=== PATIENT | female | born 1930 | race Caucasian/White ===

== ENCOUNTER 2018-03-10 07:11 | Emergency (ER) | payer OTHER ==
[~2018-03-10] VITALS: Ht 157.5 cm; Wt 48.5 kg
[~2018-03-10 07:11] MED LIST: LOSARTAN POTASS25 MG PO
[2018-03-10] MEDS ORDERED: KETOROLAC TROMETHAMINE 30 MG/ML VIAL IM STA (07:20)
[2018-03-10] MEDS ORDERED: HYDROCODONE/APAP 5MG-325MG TAB PO ONE (07:30)
[2018-03-10] MEDS ORDERED: CLONIDINE HCL 0.1 MG TAB PO ONE (07:30)
[2018-03-10] MEDS ORDERED: DEXAMETHASONE SOD PHOS 10 MG/1 ML VIAL IM ONE (07:30)
--- NOTE | 2018-03-10 09:03 | Diagnostic Imaging Report ---
PROCEDURE:X-RAY COMPLETE MANDIBLE, FOUR OR MORE VIEWS COMPARISON:None. INDICATIONS:RIGHT JAW PAIN FINDINGS: Exam somewhat limited by bony overlap. No evidence of displaced fracture. Alignment is unremarkable. The paranasal sinuses are clear. CONCLUSION: No evidence of displaced mandibular fracture. Dictated by: JUANIS GARCIA M.D. on 03/10/2018 at 9:12 Electronically approved by: JUANIS GARCIA M.D. on 03/10/2018 at 9:12
[2018-03-10 09:39] VITALS: BP 105/58
== END 2018-03-10 09:49 | disposition home or self-care (01) ==
LOC: ER 07:11
DX: G50.0 Trigeminal neuralgia (principal)
CPT/HCPCS: 70110; 99283; J1100; J1885

== ENCOUNTER 2018-03-11 12:01 | Emergency (ER) | payer OTHER ==
[~2018-03-11] VITALS: Ht 157.5 cm; Wt 48.5 kg
--- OUTSIDE RECORDS SUMMARY | 2018-03-11 12:02 | XMS REPORT ---
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 Allergies, Adverse Reactions, Alerts This patient has no known allergies or adverse reactions. Medications This patient has no known medications. Results Test Description Test Time Test Comments Text Results Atomic Results Result Comments MANDIBLE COMP 4+VIEW 2018-03-10 09:12:00 [place] [address] Patient Name: PIO BOSS MR #: [id number] : 1930 Age/Sex: 87/F Req #: [id number] Adm Physician: Ordered by: JOSR CERON MD Report #: [id number] Location: ER Room/Bed: Procedure: [id number] DX/MANDIBLE COMP 4+VIEW Exam Date: 03/10/18 Exam Time: 0815 REPORT STATUS: Signed PROCEDURE: X-RAY COMPLETE MANDIBLE, FOUR OR MORE VIE WS COMPARISON: None. INDICATIONS: RIGHT JAW PAIN FINDINGS: Exam somewhat limited by bony overlap. No evidence of displaced fracture. Alignment is unremarkable. The paranasal sinuses are clear. CONCLUSION: No evidence of displaced mandibular fracture. Dictated by: JUANIS GARCIA M.D. on 03/10/2018 at 9:12 Electronically approved by: JUANIS GARCIA M.D. on 03/10/2018 at 9:12 Dictated By: JUANIS GARCIA MD 1 Transcribed By: SAL on 03/10/18911 COPY TO: JOSR CERON MD
== END 2018-03-11 13:00 | disposition home or self-care (01) ==
LOC: ER 12:01
DX: R68.84 Jaw pain (principal); M26.621 Arthralgia of right temporomandibular joint; M81.0 Age-related osteoporosis without current pathological fracture
CPT/HCPCS: 99282

== ENCOUNTER 2018-04-05 17:06 | Emergency (ER) | payer OTHER ==
[~2018-04-05] VITALS: Ht 157.5 cm; Wt 46.7 kg
--- NOTE | 2018-04-05 19:36 | Diagnostic Imaging Report ---
History: Trauma, status post fall. Comparison studies: CT cervical spine from 11/01/2014. Technique: Axial images were obtained through the cervical region.. Coronal and sagittal images reconstructed from the axial data. Dose modulation, iterative reconstruction, and/or weight based adjustment of the mA/kV was utilized to reduce the radiation dose to as low as reasonably achievable. Intravenous contrast: None Findings: Fractures: None. Soft tissue injuries: None. Atlantoaxial articulation: Intact. Alignment: Normal lordosis. Mild levocurvature of the cervical spine is likely positional. 2 mm grade 1 retrolisthesis at C3-C4. Cervicomedullary junction: No abnormalities. The foramen magnum is patent. Soft tissues: No abnormalities. Vertebrae: No fractures, infection or neoplasm. Degenerative changes: C3-C4: Mild degenerative disc disease with decreased intervertebral disc space, anterior vertebral osteophyte and endplate sclerosis. Mild left foraminal stenosis due to uncovertebral arthrosis. C4-C5: Moderate degenerative disc disease with endplate sclerosis and degenerative Schmorl's node along the superior endplate of C5. Mild right foraminal stenosis due to uncovertebral and facet arthrosis. C5-C6: Moderate degenerative disc disease. Moderate bilateral foraminal stenosis due to facet and uncovertebral arthrosis. C6-C7: Severe degenerative disc disease with near complete loss of intervertebral disc space, endplate sclerosis and anterior vertebral osteophyte. Mild bilateral foraminal stenosis due to facet and uncovertebral arthrosis. IMPRESSION: 1. No acute cervical spine abnormalities. 2. Ligament, spinal cord and or vascular abnormalities cannot be excluded on the basis of this examination. 3. Cervical spondylosis as detailed above. Signed by: Dr. Leigh Ann Ramirez M.D. on 04/05/2018 7:33 PM
--- NOTE | 2018-04-05 19:47 | Diagnostic Imaging Report ---
EXAMINATION: Head CT without contrast. HISTORY:Trauma, status post fall. COMPARISON: Report of CT brain from 11/01/2014, prior images are not available for comparison at the time of interpretation. TECHNIQUE: Multidetector axial images were obtained from the foramen magnum to the vertex without contrast. The images were reconstructed using brain and bone algorithms. Thin section brain images were reformatted into coronal and sagittal planes. Dose modulation, iterative reconstruction, and/or weight based adjustment of the mA/kV was utilized to reduce the radiation dose to as low as reasonably achievable. Intravenous contrast: None IMAGE QUALITY: Acceptable. FINDINGS: Skull/scalp: Mild right frontal parietal scalp soft tissue edema/hematoma with focal laceration. No acute depressed or displaced calvarial fracture. Parenchyma: Nonspecific bilateral frontoparietal confluent periventricular, some cortical and deep white matter hypodensity are likely related to small vessel ischemic changes. No acute hemorrhage, mass or acute major vascular territorial infarct. Arteries: No density suggestive of thrombosis. Atherosclerotic calcification in bilateral carotid siphon and V4 segment of the vertebral arteries. Dural sinuses: No abnormal density suggestive of thrombosis. Ventricles: Mild compensated dilatation due to volume loss. No acute hydrocephalus. Extra-axial spaces: Acute right hemispheric subdural hemorrhage that approximately measures 5.5 mm in maximum thickness with mild regional mass effect. No midline shift or brain herniation. Brain volume: Generalized age-related cerebral volume loss. Craniocervical junction: No mass, Chiari malformation, or basilar invagination. Sella: No mass. Paranasal/mastoid sinuses: Imaged portions unremarkable. IMPRESSION: 1. Mild acute right frontoparietal scalp soft tissue edema/hematoma and focal laceration. No acute fracture. 2. Acute right hemispheric subdural hemorrhage with mild regional mass effect. No midline shift or brain herniation. 3. Severe supratentorial white matter microvascular ischemic changes. 4. Generalized age-related cerebral volume loss. Findings were discussed to ER physician Dr. Miranda by phone at 7:39 PM on 04/05/2018. Signed by: Dr. Leigh Ann Ramirez M.D. on 04/05/2018 7:44 PM
[2018-04-05] MEDS ORDERED: LIDOCAINE 1% W/EPINEPHRINE 20 ML VIAL INJ ONE (20:15)
[2018-04-05 20:42] LABS: BASOPHILS % 0.3 % (0.0-1.0); EOSINOPHILS % 0.3 % (0.0-6.0); HEMATOCRIT 34.9 % (34.2-44.1); HEMOGLOBIN 12.1 g/dL (12.0-16.0); LYMPHOCYTES # (AUTO) 1.1 (1.0-3.2); LYMPHOCYTES % 17.6 % (18.0-39.1); MEAN CORPUSCULAR HGB CONC 34.7 g/dL (31-35); MEAN CORPUSCULAR VOLUME 89.5 fL (81-99); MONOCYTES # (AUTO) 0.5 (0.2-0.8); MONOCYTES % 7.1 % (4.4-11.3); NEUTROPHILS # (AUTO) 4.7 (2.1-6.9); NEUTROPHILS % 74.1 % (38.7-80.0); PLATELET COUNT 369 x10e3/uL (140-360); RED CELL DISTRIBUTION WIDTH 13.6 % (11.7-14.4)
--- NOTE | 2018-04-05 20:42 | Diagnostic Imaging Report ---
EXAMINATION: Chest PA and lateral views INDICATION: Pain. COMPARISON: None FINDINGS: TUBES and LINES: None. LUNGS: Mild bilateral chronic interstitial changes. Bilateral lower lobe atelectasis. Mild prominence of the pulmonary vasculature bilaterally. There is no evidence of pneumonia or pulmonary edema. PLEURA: No compression pneumothorax. Mild pleural thickening versus small pleural effusion on the left. HEART AND MEDIASTINUM: The cardiac silhouette is mildly enlarged. BONES AND SOFT TISSUES: Healed left sided rib fractures. UPPER ABDOMEN: No free air under the diaphragm. IMPRESSION: No acute thoracic abnormality. Signed by: Dr. Tawanna Rodriguez M.D. on 04/05/2018 8:39 PM
[2018-04-05] MEDS ORDERED: TETANUS/DIPHTHERIA TOX ADULT 0.5 ML SYR IM ONE (20:45)
[2018-04-05 21:15] LABS: INR 0.91; PROTHROMBIN TIME 13.1 seconds (11.9-14.5)
[2018-04-05 21:16] LABS: PARTIAL THROMBOPLASTIN TIME 35.3 seconds (23.8-35.5)
[2018-04-05 21:21] LABS: ALANINE AMINOTRANSFERASE 13 IU/L (0-55); ALBUMIN 3.5 g/dL (3.5-5.0); ALKALINE PHOSPHATASE 88 IU/L (40-150); ANION GAP 15.1 mmol/L (8-16); BLOOD UREA NITROGEN 6 mg/dL (7-26); BUN/CREATININE RATIO 9 (6-25); CALCIUM 9.5 mg/dL (8.4-10.2); CARBON DIOXIDE 23 mmol/L (22-29); CHLORIDE 90 mmol/L (98-107); CREATINE KINASE 26 IU/L (29-168); CREATININE, SERUM 0.66 mg/dL (0.57-1.11); EST GLOMERULAR FILTRATION RATE > 60 ML/MIN (60-); GLUCOSE 110 mg/dL (74-118); POTASSIUM 4.1 mmol/L (3.5-5.1); SODIUM 124 mmol/L (136-145)
[2018-04-05 22:36] VITALS: BP 177/76
== END 2018-04-05 22:37 | disposition other institution (70) ==
LOC: ER 17:06
DX: S06.5X9A Traumatic subdural hemorrhage with loss of consciousness of unspecified duration, initial encounter (principal); S01.01XA Laceration without foreign body of scalp, initial encounter; W01.198A Fall on same level from slipping, tripping and stumbling with subsequent striking against other object, initial encounter; Y92.008 Other place in unspecified non-institutional (private) residence as the place of occurrence of the external cause; M81.0 Age-related osteoporosis without current pathological fracture; Z88.0 Allergy status to penicillin
CPT/HCPCS: 36415; 70450; 71045; 72125; 80053; 82550; 82553; 84484; 85025; 85610; 85730; 86850; 86900; 90471; 90714; 93005; 99284